=== PATIENT | female | born 1975 | race Caucasian/White ===

== ENCOUNTER 2023-03-22 09:15 | Emergency (ER) | payer BC ==
[~2023-03-22] VITALS: Ht 160 cm; Wt 86.1 kg
--- NOTE | 2023-03-22 09:44 | ED Chest Pain ---
General Chief Complaint: Chest Pain Stated Complaint: CHEST PAIN | DIZZINESS Nursing Triage Note: WOKE THIS AM AROUND 6, WITH CHEST PAIN AND DIZZINESS. WORSENED SHE GOT UP AND AROUND FOR THE DAY. Source: patient, old records Exam Limitations: no limitations History of Present Illness Date Seen by Provider: Mar 22, 2023 Time Seen by Provider: 09:28 Initial Comments This 47-year-old woman presents to the emergency room with complaints of pain in the left chest, dizziness, and nausea that started around 0600 when she woke. She felt normal at baseline last night. She still has some symptoms now after arriving to the ER. Her chest discomfort is described as a dull squeezing rated as 5/10. She denies any exacerbating or alleviating factors. Her dizziness is described as a spinning or vertigo-like sensation that is worse with head movements and rising. She did not take her blood pressure medication this morning. She is noted to be mildly hypertensive. She has no history of coronary artery disease but has not had any formal cardiac workup. She felt chilled this morning but has not had fever. She does have family history of heart disease. She believes her father developed heart disease in his 40s or 50s. There is also family history of stroke. Her left chest is slightly tender to palpation. Her primary care provider is Dr. Anita Gar at [facility] in [place]. Her preferred pharmacy is the [facility]. Review of her chart revealed history of factor V Leiden. She has never experienced any clotting problems related to factor V Leiden. Allergies and Home Medications Allergies Coded Allergies: codeine (Unverified Allergy, Unknown, 03/22/23) Patient Home Medication List Home Medication List Reviewed: Yes Review of Systems Review of Systems Constitutional: see HPI EENTM: No Symptoms Reported Respiratory: See HPI Cardiovascular: See HPI Gastrointestinal: See HPI Genitourinary: No Symptoms Reported Musculoskeletal: see HPI Skin: no symptoms reported Psychiatric/Neurological: See HPI Endocrine: No Symptoms Reported Hematologic/Lymphatic: No Symptoms Reported Past Fujzess-Vavgds-Zqxxgu Hx Patient Social History Tobacco Use?: No Use of E-Cig and/or Vaping dev: No Substance use?: No Alcohol Use?: No Immunizations Up To Date Influenza Vaccine Up-to-Date: No; Not Current First/Initial COVID19 Vaccinat: not vacc Past Medical History Surgery/Hospitalization HX: HTN CSECTION Surgeries: Yes Section, Tubal Ligation Respiratory: No Cardiac: Yes Hypertension Neurological: No : No Last Menstrual Period: Feb 22, 2023 Reproductive Disorders: Yes (placental abruption) Genitourinary: No Gastrointestinal: No Musculoskeletal: No Endocrine: No Blood Disorders: Yes (Factor V Leiden) Physical Exam Vital Signs Vital Signs - First Documented 03/22/23 09:24 Temp 36.1 Pulse 91 Resp 18 B/P (MAP) 146/104 (118) Pulse Ox 100 O2 Delivery Room Air Capillary Refill : Less Than 3 Seconds Height, Weight, BMI Height: 5'3" Weight: 175lbs. oz. 79.164522tm; 33.00 BMI Method: General Appearance: No Apparent Distress, WD/WN HEENT: PERRL/EOMI, TMs Normal, Normal ENT Inspection, Pharynx Normal Neck: Normal Inspection; No JVD Respiratory: Lungs Clear, Normal Breath Sounds, No Accessory Muscle Use, No Respiratory Distress, Other (Mild left upper anterior chest tenderness to palpation. Normal by visual inspection.) Cardiovascular: Regular Rate, Rhythm, No Edema, No Murmur, Normal Peripheral Pulses Gastrointestinal: Normal Bowel Sounds, Non Tender, Soft; No Distended Extremity: Normal Inspection, Non Tender, No Calf Tenderness, No Pedal Edema Neurologic/Psychiatric: Alert, Oriented x3, No Motor/Sensory Deficits, Normal Mood/Affect, die filer II-XII Norm as Tested, Other (Normal kcaxfl-hy-vspu and bmui-is-jxxi. No nystagmus noted with extraocular movements.) Skin: Normal Color, Warm/Dry Progress/Results/Core Measures Results/Orders Lab Results Laboratory Tests Test 03/22/23 09:30 03/22/23 11:01 03/22/23 12:29 Range/Units White Blood Count 5.1 4.3-11.0 10^3/uL Red Blood Count 5.01 3.80-5.11 10^6/uL Hemoglobin 15.2 11.5-16.0 g/dL Hematocrit 48 35-52 % Mean Corpuscular Volume 97 80-99 fL Mean Corpuscular Hemoglobin 30 25-34 pg Mean Corpuscular Hemoglobin Concent 31 L 32-36 g/dL Red Cell Distribution Width 12.8 10.0-14.5 % Platelet Count 331 130-400 10^3/uL Mean Platelet Volume 10.2 9.0-12.2 fL Immature Granulocyte % (Auto) 0 % Neutrophils (%) (Auto) 60 42-75 % Lymphocytes (%) (Auto) 31 12-44 % Monocytes (%) (Auto) 7 0-12 % Eosinophils (%) (Auto) 2 0-10 % Basophils (%) (Auto) 0 0-10 % Neutrophils # (Auto) 3.1 1.8-7.8 10^3/uL Lymphocytes # (Auto) 1.6 1.0-4.0 10^3/uL Monocytes # (Auto) 0.4 0.0-1.0 10^3/uL Eosinophils # (Auto) 0.1 0.0-0.3 10^3/uL Basophils # (Auto) 0.0 0.0-0.1 10^3/uL Immature Granulocyte # (Auto) 0.0 0.0-0.1 10^3/uL Prothrombin Time 13.5 12.2-14.7 SEC INR Comment 1.0 0.8-1.4 Activated Partial Thromboplast Time 28 24-35 SEC D-Dimer 0.47 0.00-0.49 UG/ML Sodium Level 140 135-145 MMOL/L Potassium Level 4.1 3.6-5.0 MMOL/L Chloride Level 108 H 98-107 MMOL/L Carbon Dioxide Level 21 21-32 MMOL/L Anion Gap 11 5-14 MMOL/L Blood Urea Nitrogen 10 7-18 MG/DL Creatinine 0.78 0.60-1.30 MG/DL Estimat Glomerular Filtration Rate 95 BUN/Creatinine Ratio 13 Glucose Level 98 70-105 MG/DL Calcium Level 9.4 8.5-10.1 MG/DL Corrected Calcium 9.2 8.5-10.1 MG/DL Magnesium Level 2.4 1.6-2.4 MG/DL Total Bilirubin 1.1 H 0.1-1.0 MG/DL Aspartate Amino Transf (AST/SGOT) 23 5-34 U/L Alanine Aminotransferase (ALT/SGPT) 37 0-55 U/L Alkaline Phosphatase 39 L 40-136 U/L Myoglobin 28.1 10.0-92.0 NG/ML Troponin I < 0.028 < 0.028 <0.028 NG/ML Total Protein 8.2 6.4-8.2 GM/DL Albumin 4.3 3.2-4.5 GM/DL Influenza Type A (RT-PCR) Not Detected Not Detecte Influenza Type B (RT-PCR) Not Detected Not Detecte SARS-CoV-2 RNA (RT-PCR) Not Detected Not Detecte My Orders Orders - ARSENIO AYALA MD Ekg-Prn For Chest Pain Or Rhyt (03/22/23 09:19) Covid 19 Inhouse Test (03/22/23 09:41) Influenza A And B By Pcr (03/22/23 09:41) Cbc And Automated Diff (03/22/23 09:41) Magnesium (03/22/23 09:41) Chest 1 View, Ap/Pa Only (03/22/23 09:41) Comprehensive Metabolic Panel (03/22/23 09:41) Myoglobin Serum (03/22/23 09:41) Protime With Inr (03/22/23 09:41) Partial Thromboplastin Time (03/22/23 09:41) O2 (03/22/23 09:41) Monitor-Rhythm Ecg Trace Only (03/22/23 09:41) Ed Iv/Invasive Line Start (03/22/23 09:41) Troponin I [place] (03/22/23 09:41) Nitroglycerin 0.4 Mg Btl 25's (Nitroglyc (03/22/23 09:45) Aspirin Chewable Tablet (Aspirin Chewabl (03/22/23 09:45) Fibrin Degradation Products (03/22/23 09:45) Ekg Tracing (03/22/23 09:25) Troponin I [place] (03/22/23 11:30) Medications Given in ED Vital Signs/I&O 03/22/23 03/22/23 09:24 13:55 Temp 36.1 36.1 Pulse 91 94 Resp 18 18 B/P (MAP) 146/104 (118) 119/95 Pulse Ox 100 96 O2 Delivery Room Air Room Air Blood Pressure Mean: 118 Progress Progress Note : Progress Note Patient was interviewed and examined. Chest pain protocol was ordered. She was given aspirin and nitroglycerin. Nitroglycerin resolved her pain. ECG was reviewed and interpreted by me. There is no evidence of ischemia or arrhythmia as noted in my ECG interpretation below. Labs were obtained, reviewed, and interpreted in their entirety by me. Swabs for influenza and COVID-19 were negative. CBC, CMP, magnesium, troponin, and coag panel were all negative for clinically relevant abnormalities. D-dimer was later added and was also normal effectively ruling out DVT/PE. Serial troponin was also negative. Pain did not return. Chest x-ray was reviewed and unremarkable as noted in radiologist report below. Dizziness (vertigo) seem to be fading without any particular treatment. No neurologic deficits were detected on exam. Patient was discharged in stable and improved condition. See discharge instructions for further discussion. I did explain to Daja that coronary artery disease cannot be completely ruled out in the emergency room, and follow-up promptly in the outpatient setting as important. Initial ECG Impression Date: Mar 22, 2023 Initial ECG Impression Time: 09:28 Initial ECG Rate: 88 Initial ECG Rhythm: Normal Sinus Initial ECG Impression: Normal Comment Sinus rhythm with no ST elevation or depression. No abnormal intervals or axis deviation. Diagnostic Imaging Diagonstic Imaging: Xray Plain Films/CT/US/NM/MRI: chest Comments NAME: DAJA LYNCH [facility] REC#: [id number] PT STATUS: DEP ER : 1975 PHYSICIAN: ARSENIO AYALA MD ADMIT DATE: 03/22/23/ER Signed Date of Exam:03/22/23 CHEST 1 VIEW, AP/PA ONLY INDICATION: Chest pain COMPARISON: 06/28/2015 FINDINGS: Single frontal view of the chest demonstrates normal heart size and pulmonary vascularity. The lungs are well aerated and clear. No large pleural effusion or pneumothorax is seen. The visualized osseous structures show no acute abnormalities. IMPRESSION: 1. No acute cardiopulmonary process. Dictated by: Dictated on workstation # [id number] Dict: 03/22/23 1002 Trans: 03/22/23 1628 [id number] Interpreted by: YOSSI MARIE MD Electronically signed by: YOSSI MARIE MD 03/22/23 1628 Departure Impression Primary Impression: Chest pain Qualified Codes: R07.9 - Chest pain, unspecified Additional Impression: Dizziness Disposition: 01 HOME, SELF-CARE Condition: Improved Departure-Patient Inst. Decision time for Depature: 13:27 Referrals: ANITA GAR MD (PCP/Family) Primary Care Physician Patient Instructions: Chest Pain, VERTIGO Add. Discharge Instructions: Based on your workup in the emergency room, it does not appear that you have an immediately life-threatening or dangerous problem causing your chest pain. However, further workup on an outpatient basis is warranted. Please contact your primary care provider soon as possible to schedule follow-up. Further evaluation may be warranted such as a stress test, referral to pets salesperson, cardiac catheterization, etc. Take aspirin 81 mg daily until otherwise instructed. For your dizziness, you may use meclizine purchased [id number]. Meclizine does cause drowsiness, so use with caution. You may also try the Karlo maneuver to treat vertigo. See the handout provided. If you experience any dizziness that is accompanied by other neurologic changes such as vision changes, vomiting, intense headache, numbness or weakness of a body part, difficulty generating or understanding speech, confusion, etc., please return to the emergency room immediately. Return to the emergency room if you have recurrent episodes of chest pain or other significant changes in your health. All discharge instructions reviewed with patient and/or family. Voiced understanding. Work/School Note: Work Release Form Date Seen in the Emergency Department: Mar 22, 2023 Return to Work: Mar 23, 2023 Restrictions: Return-No Fever (24hrs), Return-No Vomiting(24hrs) Copy Copies To 1: [facility]/ARSENIO VALDEZ MD Mar 22, 2023 09:44
[2023-03-22] MEDS ORDERED: ASPIRIN 81 MG CHEWABLE TABLET PO ONE (09:45)
[2023-03-22] MEDS ORDERED: NITROGLYCERIN 0.4 MG SL TABLETS BTL 25'S SL PRN (09:45)
[2023-03-22 09:48] LABS: BASOPHILS % (AUTO) 0 % (0-10); EOSINOPHILS # (AUTO) 0.1 10^3/uL (0.0-0.3); EOSINOPHILS % (AUTO) 2 % (0-10); HEMATOCRIT 48 % (35-52); HEMOGLOBIN 15.2 g/dL (11.5-16.0); LYMPHOCYTES # (AUTO) 1.6 10^3/uL (1.0-4.0); LYMPHOCYTES % (AUTO) 31 % (12-44); MEAN CORPUSCULAR HEMOGLOBIN 30 pg (25-34); MEAN CORPUSCULAR HGB CONC 31 g/dL (32-36); MEAN CORPUSCULAR VOLUME 97 fL (80-99); MEAN PLATELET VOLUME 10.2 fL (9.0-12.2); MONOCYTES # (AUTO) 0.4 10^3/uL (0.0-1.0); MONOCYTES % (AUTO) 7 % (0-12); NEUTROPHILS # (AUTO) 3.1 10^3/uL (1.8-7.8); NEUTROPHILS % (AUTO) 60 % (42-75); PLATELET COUNT 331 10^3/uL (130-400); WHITE BLOOD COUNT 5.1 10^3/uL (4.3-11.0)
[2023-03-22 09:51] LABS: ALBUMIN 4.3 GM/DL (3.2-4.5); CHLORIDE 108 MMOL/L (98-107); POTASSIUM 4.1 MMOL/L (3.6-5.0); SODIUM 140 MMOL/L (135-145)
[2023-03-22 09:52] LABS: CALCIUM 9.4 MG/DL (8.5-10.1); PROTHROMBIN TIME PATIENT 13.5 SEC (12.2-14.7)
[2023-03-22 09:53] LABS: GLUCOSE 98 MG/DL (70-105)
[2023-03-22 09:54] LABS: TOTAL PROTEIN 8.2 GM/DL (6.4-8.2)
[2023-03-22 09:55] LABS: CARBON DIOXIDE 21 MMOL/L (21-32)
[2023-03-22 09:56] LABS: BILIRUBIN,TOTAL 1.1 MG/DL (0.1-1.0)
[2023-03-22 09:57] LABS: ALKALINE PHOSPHATASE 39 U/L (40-136); CREATININE SERUM 0.78 MG/DL (0.60-1.30); GFR ESTIMATED 95
[2023-03-22 09:58] LABS: BUN/CREATININE RATIO 13
[2023-03-22 10:00] LABS: ALANINE AMINOTRANSFERASE 37 U/L (0-55); MAGNESIUM 2.4 MG/DL (1.6-2.4)
--- NOTE | 2023-03-22 10:04 | Diagnostic Imaging Report ---
INDICATION: Chest pain COMPARISON: 06/28/2015 FINDINGS: Single frontal view of the chest demonstrates normal heart size and pulmonary vascularity. The lungs are well aerated and clear. No large pleural effusion or pneumothorax is seen. The visualized osseous structures show no acute abnormalities. IMPRESSION: 1. No acute cardiopulmonary process. Dictated by: Dictated on workstation # [id number]
[2023-03-22 13:55] VITALS: BP 119/95
== END 2023-03-22 13:56 | disposition home or self-care (01) ==
LOC: EDUNIT# 09:15 → ER 09:17
DX: R07.9 Chest pain, unspecified (principal); R42 Dizziness and giddiness
CPT/HCPCS: 36415; 71045; 80053; 83735; 83874; 84484; 85025; 85379; 85610; 85730; 87636; 93005; 93041